=== PATIENT | female | born 1970 ===

== ENCOUNTER 2024-10-27 10:15 | Inpatient (IN) | payer OTHER ==
[~2024-10-27] VITALS: Ht 149.9 cm; Wt 60.3 kg
[~2024-10-27 10:15] MED LIST: METOTREXATE
[2024-10-27] MEDS ORDERED: RINVOQ ER15 MG PO (12:14)
[2024-10-27] MEDS ORDERED: TOPROL XL25 M1 PO (12:14)
[2024-10-27 12:15] VITALS: BP 136/92
[2024-11-03] MEDS ORDERED: CEFAZOLIN SODIUM 1,000 MG VIAL IV SCH (09:45)
[2024-11-03] MEDS ORDERED: POVIDONE-IODINE 118 ML BOTT TOP ONE (09:45)
[2024-11-03] MEDS ORDERED: GABAPENTIN 600 MG TABLET PO SCH (10:41)
[2024-11-03] MEDS ORDERED: MORPHINE SULFATE 4 MG/ML VIAL IV ONE ×2 (10:55→11:25)
[2024-11-03] MEDS ORDERED: PROMETHAZINE HCL 25 MG/ML AMPUL IV SCH (12:00)
[2024-11-03] MEDS ORDERED: MORPHINE SULFATE 4 MG/ML CARTRIDGE IV SCH (12:00)
[2024-11-03] MEDS ORDERED: GABAPENTIN 300 MG CAPSULE PO SCH (13:00)
[2024-11-03 14:23] VITALS: BP 134/85
[2024-11-03 16:20] VITALS: BP 122/77
[2024-11-03 17:04] LABS: BASO % 0.1 % (0.1-1.2); EOS # 0.00 (0.04-0.54); EOS % 0.0 % (0.7-7.0); LYMPH # 0.42 (1.18-3.74); LYMPH % 3.2 % (19.3-53.1); MEAN PLATELET VOLUME 10.00 fl (9.4-12.4); MONO # 0.85 (0.24-0.82); MONO % 6.4 % (4.7-12.5); NEUT # 11.91 (1.56-6.13); NEUT % 90.0 % (34.0-71.1); RED CELL DISTRIBUTION WIDTH 11.3 % (11.6-14.4)
[2024-11-03 23:56] VITALS: BP 143/87
[2024-11-04] MEDS ORDERED: SIMETHICONE 125 MG CAPSULE PO SCH (05:00)
[2024-11-04 08:04] VITALS: BP 140/89
[2024-11-04 16:00] VITALS: BP 126/80
[2024-11-05] VITALS: BP 111/78
[2024-11-05] MEDS ORDERED: GABAPENTIN300 MG PO (06:40)
[2024-11-05] MEDS ORDERED: IBUPROFEN800 MG PO (06:40)
[2024-11-05] MEDS ORDERED: SIMETHICONE125 M1 PO (06:40)
[2024-11-05] MEDS ORDERED: MIRALAX17 GM PO (06:40)
[2024-11-05 08:40] VITALS: BP 106/71
== END 2024-11-05 09:32 | disposition home or self-care (01) | DRG 743 ==
LOC: SURH 10:15 → O/R 11-03 05:16 → OB/GYN 11-03 05:16
PROVIDERS: ADMIT Obstetrics & Gynecology; ATTEND Obstetrics & Gynecology
PROC: 0UT20ZZ Resection of Bilateral Ovaries, Open Approach (ICD-10-PCS; 2024-11-03)
PROC: 0UT70ZZ Resection of Bilateral Fallopian Tubes, Open Approach (ICD-10-PCS; 2024-11-03)
PROC: 0UT90ZZ Resection of Uterus, Open Approach (ICD-10-PCS; principal; 2024-11-03 10:00)
DX: D25.1 Intramural leiomyoma of uterus (principal); D25.2 Subserosal leiomyoma of uterus; N80.03 Adenomyosis of the uterus